=== PATIENT | male | born 1975 | race African-American/Black ===

== ENCOUNTER 2021-12-14 11:12 | Emergency (ER) | payer MEDICARE, OTHER ==
[~2021-12-14] VITALS: Ht 182.9 cm; Wt 100.0 kg
[~2021-12-14 11:12] MED LIST: AMLO-258 PO; ASPI-1450 PO; ATOR40TA28 PO; CARV25 PO; FURO40 PO; HYDR-4072 PO; HYDR25TA84 PO; OMEP20 PO; POTA-92 PO; VALS160T2 PO
[2021-12-14] MEDS ORDERED: HYDROCODONE/ACETAMINOPHEN 5-325 MG TABLET PO ONE (12:00)
[2021-12-14 12:59] VITALS: BP 141/79
== END 2021-12-14 13:08 | disposition home or self-care (01) ==
LOC: EMS 11:18
DX: S62.632A Displaced fracture of distal phalanx of right middle finger, initial encounter for closed fracture (principal); I11.0 Hypertensive heart disease with heart failure; I50.9 Heart failure, unspecified; Z79.899 Other long term (current) drug therapy; W23.0XXA Caught, crushed, jammed, or pinched between moving objects, initial encounter; Y93.89 Activity, other specified; Y92.89 Other specified places as the place of occurrence of the external cause; Y99.8 Other external cause status
CPT/HCPCS: 99283